=== PATIENT | male | born 1990 | race African-American/Black ===

== ENCOUNTER 2017-09-26 19:14 | Emergency (ER) | payer OTHER, BC, SELFPAY ==
[2017-09-26 19:15] VITALS: BP 165/126; PULSE 109; RESP 16; TEMP 37; O2SAT 100; BMI 34.0
--- NOTE | 2017-09-26 19:20 | RAD_ITS ---
STUDY: X-RAY - RIGHT FOOT CLINICAL: Male, 26 years old. First toe pain TECHNIQUE: 4 view(s) of the foot. COMPARISON: None. FINDINGS: Nondisplaced longitudinal fracture involving the shaft and head of the proximal phalanx of the first digit with no significant angulation. Surrounding soft tissue swelling. Remainder is within normal limits RAD/Foot min 3 Views IMPRESSION: The first digit fracture as above Electronically Signed: Adelfo Mir DO at 19:41 EDT Tel , Service support ,
--- NOTE | 2017-09-26 20:05 | ED.VISSUMM ---
- ER Visit Summary Date of Service: 09/26/17 Chief Complaint: Right great toe pain History of Present Illness: The patient is a 26 M presenting with right great toe pain. Patient was at work. 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 He does not recall the exact mechanism. He has no other injuries or complaints. Physical Examination: Vitals are stable. Blood pressure 165/126. Patient is afebrile. Alert no acute distress. HEENT exam is unremarkable. Lungs are clear and equal bilaterally. Heart is regular rate and rhythm. Extremities right great toe tenderness, no foot tenderness Skin is warm and dry. No focal neurologic deficit. Remainder of exam is unremarkable. Emergency Department Course and Treatment: X-ray of the right foot shows nondisplaced longitudinal fracture involving the shaft and head of the proximal phalanx of the first digit with no significant angulation. Surrounding soft tissue swelling. Remainder is within normal limits. He was given a dose of clonidine and repeat BP is 172/114. He does take his BP medication regularly. Advised to follow-up with PCP for blood pressure recheck. Advised to follow-up with [facility]. Advised return to ED for worsening complaints. Disposition: Discharge home Impression: Right great toe fracture This note was generated with [employer] dictation software. It may contain incorrect words, spelling, and punctuation that were not noted in review of the chart prior to signing ED Disposition - Plan for ED Patient: Chief Complaint: Lower Extremity Injury Instructions: ED Fx Toe Closed Prescriptions: Hydrocodone Bitart/Apap 5-325 [[place] 5MG-325MG] 1 tablet PO Q6H PRN PRN 2 Days #8 tablet PRN Reason: Pain Referrals: [facility] [GROUP OF PHYSICIANS] - Sofya Soria PA [Primary Care Provider] -
--- NOTE | 2017-09-26 20:49 | ED.DEP ---
ED Disposition - Plan for ED Patient: Chief Complaint: Lower Extremity Injury Instructions: ED Fx Toe Closed Prescriptions: Hydrocodone Bitart/Apap 5-325 [[place] 5MG-325MG] 1 tablet PO Q6H PRN PRN 2 Days #8 tablet PRN Reason: Pain Referrals: Sofya Soria PA [Primary Care Provider] - [facility] [GROUP OF PHYSICIANS] -
--- NOTE | 2017-09-26 20:51 | DCINST.ED_ITS ---
ED Disposition - Plan for ED Patient: Chief Complaint: Lower Extremity Injury Instructions: ED Fx Toe Closed Prescriptions: Hydrocodone Bitart/Apap 5-325 [[place] 5MG-325MG] 1 tablet PO Q6H PRN PRN 2 Days # 8 tablet PRN Reason: Pain Referrals: Sofya Soria PA [Primary Care Provider] - [facility] [GROUP OF PHYSICIANS] -
[2017-09-26 21:09] VITALS: BP 192/124; PULSE 107; RESP 16; O2SAT 97
[2017-09-26] MEDS: cloNIDine HCl 0.1 MG Tablet 0.2 MG PO (21:16)
[2017-09-26 21:18] VITALS: BP 192/124; PULSE 107; RESP 16; O2SAT 97
[2017-09-26 22:00] VITALS: BP 174/114
== END 2017-09-26 22:00 | disposition home or self-care (01) ==
PROVIDERS: Emergency Provider Emergency Medicine; Family Provider Physician Assistant; PCP Physician Assistant
DX: S92.414A Nondisplaced fracture of proximal phalanx of right great toe, initial encounter for closed fracture (principal); X58.XXXA Exposure to other specified factors, initial encounter; Y93.89 Activity, other specified; Y92.89 Other specified places as the place of occurrence of the external cause; Y99.0 Civilian activity done for income or pay; I10 Essential (primary) hypertension
CPT/HCPCS: 73630; 99284

== ENCOUNTER 2019-11-28 23:30 | Emergency (ER) | payer OTHER, SELFPAY ==
[2019-11-28 23:31] VITALS: BP 196/129; PULSE 100; RESP 18; TEMP 36.5; O2SAT 97; BMI 36.9
--- NOTE | 2019-11-28 23:43 | ED.RN ---
ATTEMPTED TO CALL [employer]LECT[employer] [facility] THREE TIMES TO TEST REQUIRED FOR WORK INJURY WITH NO ANSWER TO MY CALLS.
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
--- NOTE | 2019-11-28 23:56 | ED.RN ---
CONTACTED MALIHA WITH [facility], SHE WILL BE IN TO TEST THIS PT
[2019-11-29 00:06] VITALS: BP 166/110
[2019-11-29 00:18] VITALS: BP 166/110
[2019-11-29] MEDS: Acetaminophen 500 MG Tablet 1000 MG PO (01:08)
== END 2019-11-29 01:09 | disposition home or self-care (01) ==
LOC: ED 11-29 00:10
PROVIDERS: Emergency Provider Emergency Medicine; PCP Physician Assistant
DX: S00.83XA Contusion of other part of head, initial encounter (principal); Y04.2XXA Assault by strike against or bumped into by another person, initial encounter; Y93.9 Activity, unspecified; Y92.89 Other specified places as the place of occurrence of the external cause; Y99.0 Civilian activity done for income or pay; I10 Essential (primary) hypertension
CPT/HCPCS: 99282

== ENCOUNTER 2020-05-14 00:53 | Emergency (ER) | payer OTHER, SELFPAY ==
[2020-05-14 00:54] VITALS: BP 195/121; PULSE 98; RESP 18; TEMP 36.3; O2SAT 98; BMI 39.2
--- NOTE | 2020-05-14 01:10 | ED.RN ---
CALLED FOR A DRUG SCREENING
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
[2020-05-14 02:40] LABS: HIV - WCH Non-Reactive (Nonreactive); Hepatitis B Surface Antibody Non-Reactive; Hepatitis B Surface Antigen Non-Reactive (Nonreactive); Hepatitis C Antibody Non-Reactive (Nonreactive)
== END 2020-05-14 02:15 | disposition home or self-care (01) ==
LOC: ED 01:34
PROVIDERS: Emergency Provider Emergency Medicine; PCP Physician Assistant
DX: Z77.21 Contact with and (suspected) exposure to potentially hazardous body fluids (principal); W46.0XXA Contact with hypodermic needle, initial encounter; Y99.0 Civilian activity done for income or pay; Z91.010 Allergy to peanuts
CPT/HCPCS: 36415; 86703; 86706; 86803; 87340; 99282

== ENCOUNTER 2022-08-13 06:13 | Emergency (ER) | payer OTHER, SELFPAY ==
[2022-08-13 06:14] VITALS: BP 229/141; PULSE 101; RESP 20; TEMP 37.1; O2SAT 98; BMI 25.0
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
--- NOTE | 2022-08-13 06:25 | RAD_ITS ---
INDICATION: 3rd digit injury EXAMINATION/TECHNIQUE: X-RAY - LEFT XR Hand Min 3 Views COMPARISON: None. FINDINGS: SOFT TISSUES: Unremarkable. BONES/JOINTS: Intra-articular fracture of the dorsal base of the distal third phalanx with dorsal displacement of the fracture fragment. No dislocation. No significant degenerative changes. No erosive changes. RAD/Hand Min 3 Views IMPRESSION: Intra-articular fracture of the base of the distal third phalanx. Electronically Signed: Srinath Waggoner DO at 6:42 EDT ,
[2022-08-13 06:51] VITALS: BP 202/114
[2022-08-13 07:25] VITALS: TEMP 36.4; O2SAT 100
== END 2022-08-13 07:26 | disposition home or self-care (01) ==
PROVIDERS: Emergency Provider Emergency Medicine; PCP Physician Assistant; Visit Provider Emergency Medicine
DX: S62.313A Displaced fracture of base of third metacarpal bone, left hand, initial encounter for closed fracture (principal); R03.0 Elevated blood-pressure reading, without diagnosis of hypertension; X58.XXXA Exposure to other specified factors, initial encounter; Y92.69 Other specified industrial and construction area as the place of occurrence of the external cause
CPT/HCPCS: 29130; 73130; 99282